=== PATIENT | male | born 1950 | race Caucasian/White ===

== ENCOUNTER 2017-05-28 12:45 | Inpatient (IN) | payer MEDICARE, OTHER ==
[~2017-05-28 12:45] MED LIST: Bisacodyl 5 MG Tab PO PRN; Cyclobenzaprine 10 MG Tab PO PRN; Lactated Ringers 1,000 ML IV SCH; Lidocaine 1%/Sod Bicarbonate in NS 8.4% 1 ML Syringe IV PRN; Magnesium Hydroxide 400 MG/5 ML Susp 30 ML Cup PO PRN; Morphine 2 MG/ML Syringe IVPUSH PRN; Naloxone 0.4 MG/ML SDV IVPUSH PRN; Ondansetron 4 MG/2 ML SDV IVPUSH PRN; Sennosides 8.6 MG Tab PO PRN; Sodium Chloride 0.9% 10 ML Syringe FLUSH PRN; diphenhydrAMINE 50 MG/ML SDV IVPUSH PRN
[2017-05-28] MEDS ORDERED: ceFAZolin 1 GM Vial ONE (13:29)
[2017-05-28] MEDS ORDERED: fentaNYL 100 MCG/2 ML SDV ONE (13:30)
[2017-05-28] MEDS ORDERED: Midazolam 1 MG/ML 2 ML SDV ONE ×2 (13:30→14:23)
[2017-05-28] MEDS ORDERED: Morphine PF 10 MG/10 ML SDV ONE (13:30)
[2017-05-28] MEDS ORDERED: Propofol 200 MG/20 ML SDV ONE ×4 (13:30→17:08)
--- NOTE | 2017-05-28 13:30 | PCM.PREANE ---
Preanesthetic Assessment - Anesthesia/Transfusion/Family Hx Anesthesia History: Prior Anesthesia Without Reaction Family History of Anesthesia Reaction: No Transfusion History: No Prior Transfusion(s) Intubation History: Unknown - Review of Systems General: No Symptoms Pulmonary: No Symptoms Cardiovascular: No Symptoms Gastrointestinal: No Symptoms Neurological: No Symptoms Other: Reports: None, Easy Bruising - Physical Assessment NPO Status Date: 05/28/17 NPO Status Time: 06:00 Pulse: 74 O2 Sat by Pulse Oximetry: 94 Respiratory Rate: 16 Blood Pressure: 139/74 Temperature: 99 F Height: 1.83 m Weight: 90.764 kg ASA Class: 2 Mental Status: Alert & Oriented x3 Airway Class: Mallampati = 2 Dentition: Reports: Normal Dentition ROM/Head Extension: Full Lungs: Clear to Auscultation, Normal Respiratory Effort Cardiovascular: Regular Rate, Regular Rhythm - Lab Values: Laboratory Last Values MRSA (PCR) Negative 05/08/17 13:01 - Allergies Allergies/Adverse Reactions: Allergies Allergy/AdvReac Type Severity Reaction Status Date / Time No Known Allergies Allergy Verified 06/12/16 20:51 - Blood Blood Available: No - Acknowledgements Anesthesia Type Planned: Spinal Pt an Appropriate Candidate for the Planned Anesthesia: Yes Alternatives and Risks of Anesthesia Discussed w Pt/Guardian: Yes Pt/Guardian Understands and Agrees with Anesthesia Plan: Yes PreAnesthesia Questionnaire HEENT History: Reports: Allergic Rhinitis, Impaired Vision, Other (See Below) Other HEENT History: wears glasses, has hearing aids Cardiovascular History: Reports: Hypertension Respiratory History: Reports: Sleep Apnea Gastrointestinal History: Reports: GERD Genitourinary History: Reports: Prostate Disorder, Other (See Below) Other Genitourinary History: renal artery anurysm, malignant neoplasm of prostate 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 Musculoskeletal History: Reports: Arthritis, Osteoarthritis, Osteoporosis Neurological History: Reports: None, Other (See Below) Psychiatric History: Reports: None Endocrine/Metabolic History: Reports: None Hematologic History: Reports: None Immunologic History: Reports: None Oncologic (Cancer) History: Reports: Prostate Other Oncologic History: skin cancer removed x2 Dermatologic History: Reports: None - Past Surgical History Head Surgeries/Procedures: Reports: None HEENT Surgical History: Reports: Cataract Surgery, Naso-Sinus Surgery Other HEENT Surgeries/Procedures: sinus surgery Cardiovascular Surgical History: Reports: None Respiratory Surgical History: Reports: None GI Surgical History: Reports: Colonoscopy, Hernia, Inguinal Male Surgical History: Reports: Other (See Below) Other Male Surgeries/Procedures: prostate surgery Endocrine Surgical History: Reports: None Neurological Surgical History: Reports: None Musculoskeletal Surgical History: Reports: Hip Replacement, Knee Replacement, Other (See Below) Other Musculoskeletal Surgeries/Procedures:: left ankle surgery with hardward, R knee replacement, Lef toe fusion, left hip replacement Oncologic Surgical History: Dermatological Surgical History: Reports: None - SUBSTANCE USE Smoking Status *Q: Former Smoker Tobacco Use Within Last Twelve Months: No Second Hand Smoke Exposure: No Days Per Week of Alcohol Use: 2 Number of Drinks Per Day: 2 Total Drinks Per Week: 4 Recreational Drug Use History: No - HOME MEDS Home Medications: Home Meds Calcium Carbonate [Calcium] 1,200 mg PO DAILY 05/08/15 [History] Lisinopril/Hydrochlorothiazide [Lisinopril-Hctz 20-25 mg Tab] 0.5 tab PO DAILY 05/08/15 [History] Lutein/Minerals/Vit A,C & E [Ocuvite] 1 tab PO BID 06/02/16 [History] Acetaminophen/oxyCODONE [Percocet 325-5 MG] 1 - 2 tab PO Q4H PRN #60 tablet 09/28 [Rx] Diclofenac Sodium [Voltaren] 1 applic TOP ASDIRECTED PRN 05/25/17 [History] Forteo 20 mcg SQ DAILY 05/25/17 [History] Gabapentin [Neurontin] 1,200 mg PO TID 05/25/17 [History] - CURRENT (IN HOUSE) MEDS Current Meds: Current Medications Aspirin (Ecotrin) 325 mg PO BID [facility]VER[facility] Bisacodyl (Dulcolax) 5 mg PO DAILY PRN PRN Reason: Constipation Morphine Sulfate 8 mg/Epinephrine HCl 0.3 mg/Cefuroxime Sodium 750 mg/Ketorolac Tromethamine 30 mg/Sodium Chloride 27.9 ml 0 mg .XX ONETIME ONE Stop: 05/28/17 15:01 Cyclobenzaprine HCl (Flexeril) 10 mg PO TID PRN PRN Reason: Spasms Diphenhydramine HCl (Benadryl) 25 mg IVPUSH Q4H PRN PRN Reason: Nausea Docusate Sodium (Colace) 100 mg PO BID [facility] Famotidine (Pepcid) 20 mg PO Q12H [facility] Lactated Ringer's (Ringers, Lactated) 1,000 mls @ 125 mls/hr IV ASDIRECTED [facility] Cefazolin Sodium/Dextrose 2 gm (/ Premix) 50 mls @ 100 mls/hr IV Q8H [facility] Stop: 05/28/17 23:59 Ketorolac Tromethamine (Toradol) 15 mg IVPUSH Q6H [facility] Stop: 05/28/17 19:31 Lidocaine/Sodium Bicarbonate (Buffered Lidocaine 1% In Ns 8.4%) 0.25 ml IV ONETIME PRN PRN Reason: Prior to IV Start Stop: 05/28/17 23:00 Magnesium Hydroxide (Milk Of Magnesia) 30 ml PO BID PRN PRN Reason: Constipation Morphine Sulfate (Morphine) 2 mg IVPUSH Q2H PRN PRN Reason: Breakthrough Pain Naloxone HCl (Narcan) 0.1 mg IVPUSH Q5M PRN PRN Reason: Oversedation Ondansetron HCl (Zofran) 4 mg IVPUSH Q6H PRN PRN Reason: Nausea/Vomiting Oxycodone/Acetaminophen (Percocet 325-5 Mg) 1 - 2 tab PO Q4H PRN PRN Reason: Pain Senna (Senna) 8.6 mg PO BID PRN PRN Reason: Constipation Sodium Chloride (Saline Flush) 10 ml FLUSH ASDIRECTED PRN PRN Reason: Keep Vein Open Discontinued Medications Bupivacaine HCl (Marcaine 0.25%) Confirm Administered Dose 30 ml .ROUTE .STK- MED ONE Stop: 05/28/17 12:41 Cefazolin Sodium (Ancef) Confirm Administered Dose 2 gm .ROUTE .STK-MED ONE Stop: 05/28/17 12:41 Cefazolin Sodium (Ancef) Confirm Administered Dose 2 gm .ROUTE .STK-MED ONE Stop: 05/28/17 13:30 Fentanyl (Sublimaze) Confirm Administered Dose 100 mcg .ROUTE .STK-MED ONE Stop: 05/28/17 13:31 Iodine (Iodine 2% Mild Tincture) Confirm Administered Dose 30 ml .ROUTE .STK- MED ONE Stop: 05/28/17 12:41 Midazolam HCl (Versed 1 Mg/Ml) Confirm Administered Dose 2 mg .ROUTE .STK-MED ONE Stop: 05/28/17 13:31 Morphine Sulfate (Duramorph Pf) Confirm Administered Dose 10 mg .ROUTE .STK-MED ONE Stop: 05/28/17 13:31 Propofol (Diprivan 20 Ml) Confirm Administered Dose 600 mg .ROUTE .STK-MED ONE Stop: 05/28/17 13:31 Tranexamic Acid (Cyklokapron) Confirm Administered Dose 1,000 mg .ROUTE .STK- MED ONE Stop: 05/28/17 12:41 Vancomycin HCl (Vancomycin) Confirm Administered Dose 1 gm .ROUTE .STK-MED ONE Stop: 05/28/17 12:41
[2017-05-28] MEDS ORDERED: Ketamine 500 mg/10 ML MDV ONE (14:24)
[2017-05-28] MEDS ORDERED: Morphine 8 MG, EPINEPHrine 0.3 MG, Cefuroxime 750 MG, Ketorolac 30 MG, Sodium Chloride ... ONE ×5 (15:00)
[2017-05-28] MEDS: ceFAZolin 1 GM Vial ONE ×2 (15:37→16:19)
[2017-05-28] MEDS: Bupivacaine 0.25% 30 ML SDV ONE ×2 (15:37→16:25)
[2017-05-28] MEDS: Iodine/Sodium Iodide 2% Tincture 30 ML Bottle ONE ×2 (15:38→16:15)
[2017-05-28] MEDS: Vancomycin 1 GM SDV ONE ×3 (15:40→16:26)
[2017-05-28] MEDS ORDERED: diphenhydrAMINE 50 MG/ML SDV IVPUSH PRN (15:41)
[2017-05-28] MEDS ORDERED: ePHEDrine 50 MG/ML SDV IVPUSH PRN (15:41)
[2017-05-28] MEDS ORDERED: Ondansetron 4 MG/2 ML SDV IVPUSH PRN (15:41)
[2017-05-28] MEDS ORDERED: Haloperidol Lactate 5 MG/ML SDV IVPUSH ONE (15:41)
[2017-05-28] MEDS ORDERED: Ketorolac 30 MG/ML SDV ONE (16:28)
[2017-05-28] MEDS ORDERED: Ondansetron 4 MG/2 ML SDV ONE (16:28)
--- NOTE | 2017-05-28 17:02 | PCM.POSTAN ---
POST ANESTHESIA ASSESSMENT - MENTAL STATUS Mental Status: Alert, Oriented - VITAL SIGNS Pulse Rate: 71 SaO2: 94 Resp Rate: 21 Blood Pressure: 111/72 Temperature: 36.1 C - RESPIRATORY Respiratory Status: Respiratory Rate WNL, Airway Patent, O2 Saturation Stable - CARDIOVASCULAR CV Status: Pulse Rate WNL, Blood Pressure Stable - GASTROINTESTINAL GI Status: No Symptoms - PAIN Pain Score: 0 - POST OP HYDRATION Hydration Status: Adequate & Stable
[2017-05-28] MEDS ORDERED: Diphtheria,Pertussis(Acell),Tetanus Vaccine 0.5 ML SDV IM ONE (18:37)
[2017-05-28] MEDS ORDERED: FLU Vacc QS 2017-18 (6mos UP)/PF 60 MCG/0.5 ML Syringe IM ONE (19:00)
--- NOTE | 2017-05-28 20:01 | PCM.CONS ---
H&P History of Present Illness - General Date of Service: 05/28/17 Admit Problem/Dx: Admission Diagnosis/Problem Admission Diagnosis/Problem Osteoarthritis of hip Source of Information: Patient, Family (), Old Records, Provider, RN, RN Notes Reviewed, Other (surgical notes ) History Limitations: Reports: No Limitations - History of Present Illness Initial Comments - Free Text/Narative: Jean-Paul Almanza is a 66 [address] of [address] Morgan who is post-operative day 0 right AMANDO. Hospital medicine was consulted for medical management. Pt. is resting comfortably in bed. He reports mild nausea and this was communicated to the nurse. He denies any CP, SOB, palpitations, or vomiting. He carries a history of HTN, DESTIN, GERD, Renal artery aneurysm with stent placement, malignant neoplasm of the prostate, prostatectomy, OA, arthritis, osteoporosis, right TKA , left AMANDO. He is a former smoker. He is a full code. His PCP is Vane Steiner PA-C here at [facility]. Right Hip Pain Score (Numeric/FACES): 5 - Related Data Allergies/Adverse Reactions: Allergies Allergy/AdvReac Type Severity Reaction Status Date / Time No Known Allergies Allergy Verified 06/12/16 20:51 Home Medications: Home Meds Calcium Carbonate [Calcium] 1,200 mg PO DAILY 05/08/15 [History] Lisinopril/Hydrochlorothiazide [Lisinopril-Hctz 20-25 mg Tab] 0.5 tab PO DAILY 05/08/15 [History] Lutein/Minerals/Vit A,C & E [Ocuvite] 1 tab PO BID 06/02/16 [History] Acetaminophen/oxyCODONE [Percocet 325-5 MG] 1 - 2 tab PO Q4H PRN #60 tablet 09/28 [Rx] Diclofenac Sodium [Voltaren] 1 applic TOP ASDIRECTED PRN 05/25/17 [History] Forteo 20 mcg SQ DAILY 05/25/17 [History] Gabapentin [Neurontin] 1,200 mg PO TID 05/25/17 [History] Past Medical History HEENT History: Reports: Allergic Rhinitis, Impaired Vision, Other (See Below) Other HEENT History: wears glasses, has hearing aids Cardiovascular History: Reports: Hypertension Respiratory History: Reports: Sleep Apnea Gastrointestinal History: Reports: GERD Genitourinary History: Reports: Prostate Disorder, Other (See Below) Other Genitourinary History: renal artery anurysm, malignant neoplasm of prostate 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 Musculoskeletal History: Reports: Arthritis, Osteoarthritis, Osteoporosis Neurological History: Reports: None, Other (See Below) Psychiatric History: Reports: None Endocrine/Metabolic History: Reports: None Hematologic History: Reports: None Immunologic History: Reports: None Oncologic (Cancer) History: Reports: Prostate Other Oncologic History: skin cancer removed x2 Dermatologic History: Reports: None - Past Surgical History Head Surgeries/Procedures: Reports: None HEENT Surgical History: Reports: Cataract Surgery, Naso-Sinus Surgery Other HEENT Surgeries/Procedures: sinus surgery Cardiovascular Surgical History: Reports: None Respiratory Surgical History: Reports: None GI Surgical History: Reports: Colonoscopy, Hernia, Inguinal Male Surgical History: Reports: Other (See Below) Other Male Surgeries/Procedures: prostate surgery Endocrine Surgical History: Reports: None Neurological Surgical History: Reports: None Musculoskeletal Surgical History: Reports: Hip Replacement, Knee Replacement, Other (See Below) Other Musculoskeletal Surgeries/Procedures:: left ankle surgery with hardward, R knee replacement, Lef toe fusion, left hip replacement with revision Dermatological Surgical History: Reports: None Social & Family History - Family History Family Medical History: Noncontributory Oncologic: Reports: Breast, Prostate Other Oncologic Family History: brother. sister - Tobacco Use Smoking Status *Q: Former Smoker Years of Tobacco use: 40 Packs/Tins Daily: 1 Used Tobacco, but Quit: Yes Month Tobacco Last Used: 08/2002 Second Hand Smoke Exposure: No - Caffeine Use Caffeine Use: Reports: Coffee, Tea Other Caffeine Use: a few teas, and coffee a day - Alcohol Use Days Per Week of Alcohol Use: 2 Number of Drinks Per Day: 2 Total Drinks Per Week: 4 - Recreational Drug Use Recreational Drug Use: No Drug Use in Last 12 Months: No H&P Review of Systems - Review of Systems: Review Of Systems: See Below General: Reports: No Symptoms, Chills. Denies: Fever, Malaise, Weakness, Fatigue HEENT: Reports: No Symptoms. Denies: Ear Pain, Eye Pain, Headaches, Sore Throat , Visual Changes Pulmonary: Reports: No Symptoms. Denies: Shortness of Breath, Wheezing, Pleuritic Chest Pain, Cough, Sputum Cardiovascular: Reports: No Symptoms. Denies: Chest Pain, Palpitations, Dyspnea on Exertion, Orthopnea, Edema Gastrointestinal: Reports: Nausea (mild ). Denies: Abdominal Pain, Anorexia, Black Stool, Constipation, Diarrhea, Vomiting Genitourinary: Reports: No Symptoms. Denies: Frequency, Pain, Urgency Musculoskeletal: Reports: Leg Pain (right ), Joint Pain (right hip ). Denies: Neck Pain, Shoulder Pain, Back Pain Skin: Reports: No Symptoms. Denies: Cyanosis, Jaundice, Mottled Psychiatric: Reports: No Symptoms. Denies: Confusion, Depression, Mood Lability , Anxiety Neurological: Reports: No Symptoms. Denies: Confusion, Dizziness, Headache, Numbness, Tingling Hematologic/Lymphatic: Reports: Easy Bruising. Denies: Anemia, Easy Bleeding, Swollen Glands Immunologic: Reports: No Symptoms Review of Systems Comment:: Patient is resting. Notes mild nausea as he had just eaten supper. Reports he can finally feel his legs again. No other complaints at this time. Exam - Exam Exam: See Below - Vital Signs Vital Signs: Last Vital Signs Temp 97.9 F 05/28/17 17:56 Pulse 71 05/28/17 17:02 Resp 9 L 05/28/17 17:56 BP 114/77 05/28/17 17:56 Pulse Ox 98 05/28/17 17:56 Weight: 205 lb - Exam Quality Assessment: Urinary Catheter, DVT Prophylaxis General: Alert, Oriented, Cooperative HEENT: Conjunctiva Clear, EACs Clear, Hearing Intact, Mucosa Moist & [place], Nares Patent, Normal Nasal Septum, Posterior Pharynx Clear, Pupils Equal, Pupils Reactive Neck: Supple, Trachea Midline. No: JVD Lungs: Clear to Auscultation, Normal Respiratory Effort Cardiovascular: Regular Rate, Regular Rhythm GI/Abdominal Exam: Normal Bowel Sounds, Soft, Non-Tender, No Organomegaly, No Distention, No Abnormal Bruit, No Mass (Male) Exam: Deferred Rectal (Males) Exam: Deferred Back Exam: Normal Inspection, Full Range of Motion Extremities: No Pedal Edema, Normal Capillary Refill, Limited Range of Motion, Other (Wedge in place between patients legs. CHANELLE bandage in place on right leg. Bandage is intact and dry.) Peripheral Pulses: 2+: Radial (L), Radial (R), Posterior Tibial (L), Posterior Tibial (R), Dorsalis Pedis (L), Dorsalis Pedis (R) Skin: Warm, Intact Neurological: Cranial Nerves Intact (grossly ) Neuro Extensive - Mental Status: Alert, Oriented x3, Normal Mood/Affect, Normal Cognition, Memory Intact Neuro Extensive - Motor, Sensory, Reflexes: CN II-XII Intact (grossly ) Psychiatric: Alert, Normal Affect, Normal Mood Physical Exam Comments:: Patient is resting in bed. Overall no concerns. We'll continue to monitor his nausea. - Patient Data Lab Results Last 24 hrs: Laboratory Results - last 24 hr 05/28/17 Range/Units 13:30 Blood Type O POSITIVE Gel Antibody Screen Negative Consult PN Assessment/Plan POD#: 0 Procedures: Procedures 3D RENDER W/INTRP POSTPROCES (06/09/16) AQUATIC THERAPY/EXERCISES (10/11/16) ASSAY OF CREATININE (03/07/16) ASSAY OF FERRITIN (05/23/16) ASSAY OF PARATHORMONE (07/19/16) ASSAY OF PREALBUMIN (05/08/17) ASSAY OF PSA TOTAL (12/01/14) ASSAY OF TROPONIN QUANT (05/23/16) BLOOD TYPING SEROLOGIC ABO (06/12/16) BLOOD TYPING SEROLOGIC RH(D) (06/12/16) BONE IMAGING 3 PHASE (02/14/17) C-REACTIVE PROTEIN (01/30/17) CARDIOVASCULAR STRESS TEST (05/31/16) CHEST X-RAY 2VW FRONTAL&LATL (03/26/17) COMPLETE CBC W/AUTO DIFF WBC (05/08/17) COMPREHEN METABOLIC PANEL (05/08/17) CREATINE MB FRACTION (05/23/16) CT ABDOMEN W/O & W/DYE (03/07/16) CT LOWER EXTREMITY W/O DYE (06/09/16) CT MAXILLOFACIAL W/O DYE (09/16/14) DRAIN/INJ JOINT/BURSA W/O US (03/06/17) DXA BONE DENSITY AXIAL (07/03/16) ELECTRIC CURRENT THERAPY (03/06/17) EMERGENCY DEPT VISIT (05/08/15) EXTREMITY STUDY (02/15/16) GAIT TRAINING THERAPY (06/12/16) HT MUSCLE IMAGE SPECT MULT (05/31/16) INFLUENZA ASSAY W/OPTIC (10/26/16) MANUAL THERAPY 1/> REGIONS (03/06/17) MEASURE BLOOD OXYGEN LEVEL (06/12/16) METABOLIC PANEL TOTAL CA (01/30/17) MR-STAPH DNA AMP PROBE (05/24/16) MRI LUMBAR SPINE W/O DYE (02/22/16) NEUROMUSCULAR REEDUCATION (09/07/16) OFFICE/OUTPATIENT VISIT EST (10/26/16) OT EVALUATION (06/12/16) PROTHROMBIN TIME (05/08/17) PT EVAL MOD COMPLEX 30 MIN (03/06/17) PT EVALUATION (06/12/16) RBC ANTIBODY SCREEN (06/12/16) RBC SED RATE AUTOMATED (01/30/17) ROUTINE VENIPUNCTURE (05/08/17) SELF CARE MNGMENT TRAINING (06/12/16) THERAPEUTIC ACTIVITIES (06/05/16) THERAPEUTIC EXERCISES (03/06/17) THROMBOPLASTIN TIME PARTIAL (05/08/17) TTE W/DOPPLER COMPLETE (05/31/16) URINALYSIS AUTO W/O SCOPE (12/01/14) VITAMIN D 25 HYDROXY (07/19/16) X-RAY EXAM HIP UNI 1 VIEW (06/12/16) X-RAY EXAM L-S SPINE BENDING (02/22/16) (1) S/P total hip arthroplasty SNOMED Code(s): 960472950878 Code(s): Z96.649 - PRESENCE OF UNSPECIFIED ARTIFICIAL HIP JOINT Priority: High Current Visit: Yes Qualifiers: Laterality: right Qualified Code(s): Z96.641 - Presence of right artificial hip joint (2) Postoperative nausea SNOMED Code(s): 94012835 Code(s): R11.0 - NAUSEA; Z98.890 - OTHER SPECIFIED POSTPROCEDURAL STATES Priority: High Current Visit: Yes (3) Osteoarthritis of hip SNOMED Code(s): 726337048 Code(s): M16.9 - OSTEOARTHRITIS OF HIP, UNSPECIFIED Priority: High Current Visit: Yes Qualifiers: Osteoarthritis type: primary Laterality: right Qualified Code(s): M16.11 - Unilateral primary osteoarthritis, right hip (4) GERD (gastroesophageal reflux disease) SNOMED Code(s): 623581656 Code(s): K21.9 - GASTRO-ESOPHAGEAL REFLUX DISEASE WITHOUT ESOPHAGITIS Priority: Low Current Visit: Yes Qualifiers: Esophagitis presence: esophagitis presence not specified Qualified Code(s) : K21.9 - Gastro-esophageal reflux disease without esophagitis (5) Monzon catheter in place SNOMED Code(s): 827647644 Code(s): Z92.89 - PERSONAL HISTORY OF OTHER MEDICAL TREATMENT Priority: Medium Current Visit: Yes (6) HTN (hypertension) SNOMED Code(s): 60243236 Code(s): I10 - ESSENTIAL (PRIMARY) HYPERTENSION Priority: Medium Current Visit: Yes Qualifiers: Hypertension type: essential hypertension Qualified Code(s): I10 - Essential (primary) hypertension (7) DESTIN on CPAP SNOMED Code(s): 13361392 Code(s): G47.33 - OBSTRUCTIVE SLEEP APNEA (ADULT) (PEDIATRIC) Priority: Medium Current Visit: Yes (8) History of prostate cancer SNOMED Code(s): 318958524 Code(s): Z85.46 - PERSONAL HISTORY OF MALIGNANT NEOPLASM OF PROSTATE Priority: Low Current Visit: No (9) Renal artery aneurysm SNOMED Code(s): 75026799 Code(s): I72.2 - ANEURYSM OF RENAL ARTERY Priority: Low Current Visit: No Comment: Recent renal artery aneurysm repair/stenting done 1 year prior Problem List Initiated/Reviewed/Updated: Yes Plan: I/P Acute: S/P Right AMANDO, pre-operative day 0 -DVT and pain management per primary care team -PT/OT -IS/RT -Monitor O2 saturation -O2 as indicated. Post operative nausea -Mild -Zofran as ordered via primary team -Will continue to monitor Chronic: HTN - home medications; normotensive now DESTIN - CPAP GERD Hx/o renal artery aneurism with stent Malignant neoplasm of prostate Arthritis OA Osteoperosis Hx/o Right TKA Hx/O left AMANDO Plan: CM/SW for discharge planning GI prophylaxis Home medications as ordered Routine AM labs He is a full code. His PCP is Vane Steiner PA-C Requesting Provider: Dr. Morgan Date Consult Requested: 05/28/17 Reason for Consult: Post-operative medical management Patient History Reviewed: Yes Admission H&P Reviewed: Yes Time Spent (in minutes): 45
[2017-05-28] MEDS: Docusate Sodium 100 MG Cap PO SCH (20:47)
[2017-05-28] MEDS: Famotidine 20 MG Tab PO SCH (20:47)
[2017-05-28] MEDS: ceFAZolin 2 GM in Premix Bag 1 BAG IV SCH (20:48)
[2017-05-28] MEDS: Gabapentin 600 MG Tab PO SCH (20:53)
[2017-05-29] MEDS: Ketorolac 15 MG/ML SDV IVPUSH SCH ×3 (00:37→12:48)
[2017-05-29] MEDS: ceFAZolin 2 GM in Premix Bag 1 BAG IV SCH ×2 (05:23→12:48)
--- NOTE | 2017-05-29 06:22 | PCM.CONSN ---
- General Info Date of Service: 05/29/17 Admission Dx/Problem (Free Text): Admission Diagnosis/Problem Admission Diagnosis/Problem Osteoarthritis of hip Functional Status: Reports: Pain Controlled, Tolerating Diet, Ambulating, Urinating, Incentive Spirometry. Denies: New Symptoms - Review of Systems General: Reports: No Symptoms HEENT: Reports: No Symptoms Pulmonary: Reports: No Symptoms Cardiovascular: Reports: No Symptoms Gastrointestinal: Reports: No Symptoms Genitourinary: Reports: No Symptoms Musculoskeletal: Reports: Joint Pain (12/20 but controlled. ). Denies: Neck Pain , Shoulder Pain, Back Pain, Leg Pain, Foot Pain Skin: Reports: No Symptoms Neurological: Reports: No Symptoms Psychiatric: Reports: No Symptoms - Patient Data Vitals - Most Recent: Last Vital Signs Temp 98.1 F 05/29/17 03:01 Pulse 81 05/29/17 03:01 Resp 14 05/29/17 03:01 BP 120/68 05/29/17 03:01 Pulse Ox 95 05/29/17 03:01 Weight - Most Recent: 205 lb I&O - Last 24 Hours: Intake & Output 05/28/17 05/28/17 05/29/17 14:59 22:59 06:59 Intake Total 125 850 Output Total 35 Balance 90 850 Lab Results Last 24 Hours: Laboratory Results - last 24 hr 05/28/17 Range/Units 13:30 Blood Type O POSITIVE Gel Antibody Screen Negative Med Orders - Current: Current Medications Aspirin (Ecotrin) 325 mg PO BID [facility] Bisacodyl (Dulcolax) 5 mg PO DAILY PRN PRN Reason: Constipation Calcium Carbonate/Glycine (Calcium Carbonate) 1,200 mg PO DAILY [facility] Cyclobenzaprine HCl (Flexeril) 10 mg PO TID PRN PRN Reason: Spasms Diphenhydramine HCl (Benadryl) 25 mg IVPUSH Q4H PRN PRN Reason: Nausea Diphenhydramine HCl (Benadryl) 25 mg IVPUSH Q6H PRN PRN Reason: Pruritis Docusate Sodium (Colace) 100 mg PO BID [facility] Last Admin: 05/28/17 20:47 Dose: 100 mg Famotidine (Pepcid) 20 mg PO Q12H [facility] Last Admin: 05/28/17 20:47 Dose: 20 mg Gabapentin (Neurontin) 1,200 mg PO TID [facility] Last Admin: 05/28/17 20:53 Dose: 1,200 mg Hydrochlorothiazide (Hydrochlorothiazide) 12.5 mg PO DAILY [facility] Cefazolin Sodium/Dextrose 2 gm (/ Premix) 50 mls @ 100 mls/hr IV Q8H [facility] Stop: 05/29/17 13:59 Last Admin: 05/29/17 05:23 Dose: 100 mls/hr Ketorolac Tromethamine (Toradol) 15 mg IVPUSH Q6H [facility] Stop: 05/29/17 12:01 Last Admin: 05/29/17 05:23 Dose: 15 mg Lisinopril (Prinivil) 10 mg PO DAILY [facility] Magnesium Hydroxide (Milk Of Magnesia) 30 ml PO BID PRN PRN Reason: Constipation Morphine Sulfate (Morphine) 2 mg IVPUSH Q2H PRN PRN Reason: Breakthrough Pain Naloxone HCl (Narcan) 0.1 mg IVPUSH Q5M PRN PRN Reason: Oversedation Non-Formulary Medication (Forteo) 20 mcg SQ DAILY [facility] Ondansetron HCl (Zofran) 4 mg IVPUSH Q6H PRN PRN Reason: Nausea/Vomiting Ondansetron HCl (Zofran) 4 mg IVPUSH ONETIME PRN PRN Reason: Nausea/Vomiting Oxycodone/Acetaminophen (Percocet 325-5 Mg) 1 - 2 tab PO Q4H PRN PRN Reason: Pain Senna (Senna) 8.6 mg PO BID PRN PRN Reason: Constipation Sodium Chloride (Saline Flush) 10 ml FLUSH ASDIRECTED PRN PRN Reason: Keep Vein Open Discontinued Medications Bupivacaine HCl (Marcaine 0.25%) Confirm Administered Dose 30 ml .ROUTE .STK- MED ONE Stop: 05/28/17 12:41 Last Admin: 05/28/17 16:25 Dose: 30 ml Cefazolin Sodium (Ancef) Confirm Administered Dose 2 gm .ROUTE .STK-MED ONE Stop: 05/28/17 12:41 Last Admin: 05/28/17 16:19 Dose: 2 gm Cefazolin Sodium (Ancef) Confirm Administered Dose 2 gm .ROUTE .STK-MED ONE Stop: 05/28/17 13:30 Morphine Sulfate 8 mg/Epinephrine HCl 0.3 mg/Cefuroxime Sodium 750 mg/Ketorolac Tromethamine 30 mg/Sodium Chloride 27.9 ml 0 mg .XX ONETIME ONE Stop: 05/28/17 15:01 Last Admin: 05/28/17 15:40 Dose: 788.3 mg Diphtheria/Tetanus/Acell Pertussis (Adacel) 0.5 ml IM .ONCE ONE Stop: 05/28/17 18:38 Ephedrine Sulfate (Ephedrine Sulfate) 5 mg IVPUSH ASDIRECTED PRN PRN Reason: Hypotension Fentanyl (Sublimaze) Confirm Administered Dose 100 mcg .ROUTE .STK-MED ONE Stop: 05/28/17 13:31 Haloperidol Lactate (Haldol) 1 mg IVPUSH ONETIME ONE Stop: 05/28/17 15:42 Lactated Ringer's (Ringers, Lactated) 1,000 mls @ 125 mls/hr IV ASDIRECTED [facility] Last Admin: 05/28/17 13:28 Dose: 125 mls/hr Influenza Virus Vaccine (Pharmacy To Dose - Influenza Vaccine) 1 each IM ONETIME ONE Stop: 05/28/17 18:38 Influenza Virus Vaccine (Flulaval Quad [id number]) 60 mcg IM .ONCE ONE Stop: 05/28/17 19:01 Iodine (Iodine 2% Mild Tincture) Confirm Administered Dose 30 ml .ROUTE .STK- MED ONE Stop: 05/28/17 12:41 Last Admin: 05/28/17 16:15 Dose: 18 ml Ketamine HCl (Ketalar) Confirm Administered Dose 500 mg .ROUTE .STK-MED ONE Stop: 05/28/17 14:25 Ketorolac Tromethamine (Toradol) Confirm Administered Dose 30 mg .ROUTE .STK- MED ONE Stop: 05/28/17 16:29 Lidocaine/Sodium Bicarbonate (Buffered Lidocaine 1% In Ns 8.4%) 0.25 ml IV ONETIME PRN PRN Reason: Prior to IV Start Stop: 05/28/17 23:00 Last Admin: 05/28/17 13:27 Dose: 0.25 ml Midazolam HCl (Versed 1 Mg/Ml) Confirm Administered Dose 2 mg .ROUTE .STK-MED ONE Stop: 05/28/17 13:31 Midazolam HCl (Versed 1 Mg/Ml) Confirm Administered Dose 2 mg .ROUTE .STK-MED ONE Stop: 05/28/17 14:24 Morphine Sulfate (Duramorph Pf) Confirm Administered Dose 10 mg .ROUTE .STK-MED ONE Stop: 05/28/17 13:31 Ondansetron HCl (Zofran) Confirm Administered Dose 4 mg .ROUTE .STK-MED ONE Stop: 05/28/17 16:29 Propofol (Diprivan 20 Ml) Confirm Administered Dose 600 mg .ROUTE .STK-MED ONE Stop: 05/28/17 13:31 Propofol (Diprivan 20 Ml) Confirm Administered Dose 200 mg .ROUTE .STK-MED ONE Stop: 05/28/17 14:24 Propofol (Diprivan 20 Ml) Confirm Administered Dose 400 mg .ROUTE .STK-MED ONE Stop: 05/28/17 14:25 Propofol (Diprivan 20 Ml) Confirm Administered Dose 600 mg .ROUTE .STK-MED ONE Stop: 05/28/17 17:09 Tranexamic Acid (Cyklokapron) Confirm Administered Dose 1,000 mg .ROUTE .STK- MED ONE Stop: 05/28/17 12:41 Last Admin: 05/28/17 16:26 Dose: 1,000 mg Vancomycin HCl (Vancomycin) Confirm Administered Dose 1 gm .ROUTE .STK-MED ONE Stop: 05/28/17 12:41 Last Admin: 05/28/17 16:20 Dose: 1 gm - Exam Quality Assessment: DVT Prophylaxis General: Alert, Oriented, Cooperative HEENT: Pupils Equal, Pupils Reactive, Mucous Membr. Moist/[place] Neck: Supple, Trachea Midline, No JVD Lungs: Clear to Auscultation, Normal Respiratory Effort Cardiovascular: Regular Rate, Regular Rhythm GI/Abdominal Exam: Normal Bowel Sounds, Soft, Non-Tender, No Organomegaly, No Distention, No Abnormal Bruit, No Mass (Male) Exam: Deferred Back Exam: Normal Inspection, Full Range of Motion Extremities: No Pedal Edema, Normal Capillary Refill Peripheral Pulses: 2+: Radial (L), Radial (R), Posterior Tibial (L), Posterior Tibial (R), Dorsalis Pedis (L), Dorsalis Pedis (R) Skin: Warm, Dry, Intact Wound/Incisions: Dressing Dry and Intact, No Drainage Neurological: No New Focal Deficit Psy/Mental Status: Alert, Normal Affect, Normal Mood Physical Findings Comments:: Patient has left walking boot that he wears from prior surgery. His reportedly will need to wear this boot for 1 year since the date of his surgery. Otherwise is doing well. Consult PN Assessment/Plan POD#: 1 Procedures: Procedures 3D RENDER W/INTRP POSTPROCES (06/09/16) AQUATIC THERAPY/EXERCISES (10/11/16) ASSAY OF CREATININE (03/07/16) ASSAY OF FERRITIN (05/23/16) ASSAY OF PARATHORMONE (07/19/16) ASSAY OF PREALBUMIN (05/08/17) ASSAY OF PSA TOTAL (12/01/14) ASSAY OF TROPONIN QUANT (05/23/16) BLOOD TYPING SEROLOGIC ABO (06/12/16) BLOOD TYPING SEROLOGIC RH(D) (06/12/16) BONE IMAGING 3 PHASE (02/14/17) C-REACTIVE PROTEIN (01/30/17) CARDIOVASCULAR STRESS TEST (05/31/16) CHEST X-RAY 2VW FRONTAL&LATL (03/26/17) COMPLETE CBC W/AUTO DIFF WBC (05/08/17) COMPREHEN METABOLIC PANEL (05/08/17) CREATINE MB FRACTION (05/23/16) CT ABDOMEN W/O & W/DYE (03/07/16) CT LOWER EXTREMITY W/O DYE (06/09/16) CT MAXILLOFACIAL W/O DYE (09/16/14) DRAIN/INJ JOINT/BURSA W/O US (03/06/17) DXA BONE DENSITY AXIAL (07/03/16) ELECTRIC CURRENT THERAPY (03/06/17) EMERGENCY DEPT VISIT (05/08/15) EXTREMITY STUDY (02/15/16) GAIT TRAINING THERAPY (06/12/16) HT MUSCLE IMAGE SPECT MULT (05/31/16) INFLUENZA ASSAY W/OPTIC (10/26/16) MANUAL THERAPY 1/> REGIONS (03/06/17) MEASURE BLOOD OXYGEN LEVEL (06/12/16) METABOLIC PANEL TOTAL CA (01/30/17) MR-STAPH DNA AMP PROBE (05/24/16) MRI LUMBAR SPINE W/O DYE (02/22/16) NEUROMUSCULAR REEDUCATION (09/07/16) OFFICE/OUTPATIENT VISIT EST (10/26/16) OT EVALUATION (06/12/16) PROTHROMBIN TIME (05/08/17) PT EVAL MOD COMPLEX 30 MIN (03/06/17) PT EVALUATION (06/12/16) RBC ANTIBODY SCREEN (06/12/16) RBC SED RATE AUTOMATED (01/30/17) ROUTINE VENIPUNCTURE (05/08/17) SELF CARE MNGMENT TRAINING (06/12/16) THERAPEUTIC ACTIVITIES (06/05/16) THERAPEUTIC EXERCISES (03/06/17) THROMBOPLASTIN TIME PARTIAL (05/08/17) TTE W/DOPPLER COMPLETE (05/31/16) URINALYSIS AUTO W/O SCOPE (12/01/14) VITAMIN D 25 HYDROXY (07/19/16) X-RAY EXAM HIP UNI 1 VIEW (06/12/16) X-RAY EXAM L-S SPINE BENDING (02/22/16) (1) S/P total hip arthroplasty SNOMED Code(s): 951630468355 Code(s): Z96.649 - PRESENCE OF UNSPECIFIED ARTIFICIAL HIP JOINT Priority: High Current Visit: Yes Qualifiers: Laterality: right Qualified Code(s): Z96.641 - Presence of right artificial hip joint (2) Postoperative nausea SNOMED Code(s): 24157591 Code(s): R11.0 - NAUSEA; Z98.890 - OTHER SPECIFIED POSTPROCEDURAL STATES Priority: High Current Visit: Yes (3) Osteoarthritis of hip SNOMED Code(s): 917860878 Code(s): M16.9 - OSTEOARTHRITIS OF HIP, UNSPECIFIED Priority: High Current Visit: Yes Qualifiers: Osteoarthritis type: primary Laterality: right Qualified Code(s): M16.11 - Unilateral primary osteoarthritis, right hip (4) GERD (gastroesophageal reflux disease) SNOMED Code(s): 443479311 Code(s): K21.9 - GASTRO-ESOPHAGEAL REFLUX DISEASE WITHOUT ESOPHAGITIS Priority: Low Current Visit: Yes Qualifiers: Esophagitis presence: esophagitis presence not specified Qualified Code(s) : K21.9 - Gastro-esophageal reflux disease without esophagitis (5) HTN (hypertension) SNOMED Code(s): 59913029 Code(s): I10 - ESSENTIAL (PRIMARY) HYPERTENSION Priority: Medium Current Visit: Yes Qualifiers: Hypertension type: essential hypertension Qualified Code(s): I10 - Essential (primary) hypertension (6) DESTIN on CPAP SNOMED Code(s): 83739611 Code(s): G47.33 - OBSTRUCTIVE SLEEP APNEA (ADULT) (PEDIATRIC) Priority: Medium Current Visit: Yes (7) History of prostate cancer SNOMED Code(s): 217071201 Code(s): Z85.46 - PERSONAL HISTORY OF MALIGNANT NEOPLASM OF PROSTATE Priority: Low Current Visit: No (8) Renal artery aneurysm SNOMED Code(s): 51154201 Code(s): I72.2 - ANEURYSM OF RENAL ARTERY Priority: Low Current Visit: No Comment: Recent renal artery aneurysm repair/stenting done 1 year prior Problem List Initiated/Reviewed/Updated: Yes Plan: I/P Acute: S/P Right AMANDO, pre-operative day 1 -DVT and pain management per primary care team -PT/OT -IS/RT -Monitor O2 saturation - off O2 -Hgb 11.7 -Hct 36.6 -Vital signs stable -Cretinine 1.1 -eGFR >60 -Urinating Post operative nausea - Resolved -Mild -Zofran as ordered via primary team -Will continue to monitor Chronic: HTN - home medications; normotensive now DESTIN - CPAP GERD Hx/o renal artery aneurism with stent Malignant neoplasm of prostate Arthritis OA Osteoperosis Hx/o Right TKA Hx/O left AMANDO Plan: CM/SW for discharge planning GI prophylaxis Home medications as ordered Routine AM labs He is a full code. His PCP is Vane Steiner PA-C From a hospitalist standpoint he is cleared for discharge pending ortho agreement.
--- NOTE | 2017-05-29 06:44 | CR ---
Pelvis and right hip: AP view of the pelvis was obtained as well as lateral view of the right hip. Comparison: Previous pelvis and left hip study of 06/09/16. Bilateral hip prosthesis are seen. Hip prosthesis on the right is an interval change from prior exam. Soft tissue air is seen around the right hip. Underlying bony structures are intact. Degenerative change is partially visualized within the lumbar spine. Impression: 1. Stable appearing left hip prosthesis from prior exam. 2. Interval right hip prosthesis which has been recently placed and appears within normal limits. Diagnostic code #2
[2017-05-29] MEDS: Famotidine 20 MG Tab PO SCH (08:39)
[2017-05-29] MEDS: Docusate Sodium 100 MG Cap PO SCH (08:39)
[2017-05-29] MEDS: Gabapentin 600 MG Tab PO SCH ×2 (08:40→14:47)
[2017-05-29] MEDS: Acetaminophen/oxyCODONE 325-5 MG Tab PO PRN ×2 (08:41→12:56)
[2017-05-29] MEDS ORDERED: Calcium Carbonate 600 MG Tab PO SCH (09:00)
[2017-05-29] MEDS ORDERED: Hydrochlorothiazide 12.5 MG Cap PO SCH (09:00)
[2017-05-29] MEDS ORDERED: Lisinopril 10 MG Tab PO SCH (09:00)
[2017-05-29] MEDS ORDERED: Aspirin 325 MG Tab.EC PO SCH (09:00)
--- NOTE | 2017-05-29 12:08 | PCM48HPAN ---
Post Anesthesia Note - EVALUATION WITHIN 48HRS OF ANESTHETIC Vital Signs in Normal Range: Yes Patient Participated in Evaluation: Yes Respiratory Function Stable: Yes Airway Patent: Yes Cardiovascular Function Stable: Yes Hydration Status Stable: Yes Pain Control Satisfactory: Yes Nausea and Vomiting Control Satisfactory: Yes Mental Status Recovered: Yes - COMMENTS/OBSERVATIONS Free Text/Narrative:: Patient denied any headaches, residual numbness/ tingling to LE, or back pain.
[2017-05-29 17:25] VITALS: BP 129/73
[2017-05-29] MEDS ORDERED: FORTEO 20 MCG SUBCUT SCH (21:00)
--- NOTE | 2017-05-31 18:28 | PCM.OPNOTE ---
- General Post-Op/Procedure Note Date of Surgery/Procedure: 05/28/17 Operative Procedure(s): right total hip arthroplasty Pre Op Diagnosis: right hip osteoarthrosis Post-Op Diagnosis: Same Anesthesia Technique: Local, MAC, Spinal Primary Surgeon: Denton Morgan Anesthesia Provider: Laquita Perez Hydro Mechanic: Emely Ly Hydro Mechanic: Doris Medrano EBYeison in mLs: 600 Complications: None Condition: Good
--- NOTE | 2017-06-01 08:24 | PCM.SURGPN ---
- General Info Date of Service: 05/29/17 POD#: 1 Functional Status: Reports: Pain Controlled, Tolerating Diet, Ambulating, Urinating, Incentive Spirometry - Review of Systems Musculoskeletal: Reports: Other (The pt feels prepared for discharge to home.) - Patient Data Vitals - Most Recent: Last Vital Signs Temp 99.0 F 05/29/17 15:44 Pulse 92 05/29/17 15:44 Resp 18 05/29/17 15:44 BP 129/73 05/29/17 15:44 Pulse Ox 96 05/29/17 15:44 Weight - Most Recent: 205 lb Med Orders - Current: Current Medications Discontinued Medications Aspirin (Ecotrin) 325 mg PO BID [facility] Last Admin: 05/29/17 08:39 Dose: 325 mg Bisacodyl (Dulcolax) 5 mg PO DAILY PRN PRN Reason: Constipation Bupivacaine HCl (Marcaine 0.25%) Confirm Administered Dose 30 ml .ROUTE .STK- MED ONE Stop: 05/28/17 12:41 Last Admin: 05/28/17 16:25 Dose: 30 ml Calcium Carbonate/Glycine (Calcium Carbonate) 1,200 mg PO DAILY [facility] Last Admin: 05/29/17 08:40 Dose: 1,200 mg Cefazolin Sodium (Ancef) Confirm Administered Dose 2 gm .ROUTE .STK-MED ONE Stop: 05/28/17 12:41 Last Admin: 05/28/17 16:19 Dose: 2 gm Cefazolin Sodium (Ancef) Confirm Administered Dose 2 gm .ROUTE .STK-MED ONE Stop: 05/28/17 13:30 Morphine Sulfate 8 mg/Epinephrine HCl 0.3 mg/Cefuroxime Sodium 750 mg/Ketorolac Tromethamine 30 mg/Sodium Chloride 27.9 ml 0 mg .XX ONETIME ONE Stop: 05/28/17 15:01 Last Admin: 05/28/17 15:40 Dose: 788.3 mg Cyclobenzaprine HCl (Flexeril) 10 mg PO TID PRN PRN Reason: Spasms Diphenhydramine HCl (Benadryl) 25 mg IVPUSH Q4H PRN PRN Reason: Nausea Diphenhydramine HCl (Benadryl) 25 mg IVPUSH Q6H PRN PRN Reason: Pruritis Diphtheria/Tetanus/Acell Pertussis (Adacel) 0.5 ml IM .ONCE ONE Stop: 05/28/17 18:38 Last Admin: 05/29/17 14:48 Dose: 0.5 ml Docusate Sodium (Colace) 100 mg PO BID [facility] Last Admin: 05/29/17 08:39 Dose: 100 mg Ephedrine Sulfate (Ephedrine Sulfate) 5 mg IVPUSH ASDIRECTED PRN PRN Reason: Hypotension Famotidine (Pepcid) 20 mg PO Q12H [facility] Last Admin: 05/29/17 08:39 Dose: 20 mg Fentanyl (Sublimaze) Confirm Administered Dose 100 mcg .ROUTE .STK-MED ONE Stop: 05/28/17 13:31 Gabapentin (Neurontin) 1,200 mg PO TID [facility] Last Admin: 05/29/17 14:47 Dose: 1,200 mg Haloperidol Lactate (Haldol) 1 mg IVPUSH ONETIME ONE Stop: 05/28/17 15:42 Last Admin: 05/29/17 08:29 Dose: Not Given Hydrochlorothiazide (Hydrochlorothiazide) 12.5 mg PO DAILY [facility] Last Admin: 05/29/17 08:39 Dose: 12.5 mg Lactated Ringer's (Ringers, Lactated) 1,000 mls @ 125 mls/hr IV ASDIRECTED [facility] Last Admin: 05/28/17 13:28 Dose: 125 mls/hr Cefazolin Sodium/Dextrose 2 gm (/ Premix) 50 mls @ 100 mls/hr IV Q8H [facility] Stop: 05/29/17 13:59 Last Admin: 05/29/17 12:48 Dose: 100 mls/hr Influenza Virus Vaccine (Pharmacy To Dose - Influenza Vaccine) 1 each IM ONETIME ONE Stop: 05/28/17 18:38 Influenza Virus Vaccine (Flulaval Quad [id number]) 60 mcg IM .ONCE ONE Stop: 05/28/17 19:01 Last Admin: 05/29/17 14:49 Dose: 60 mcg Iodine (Iodine 2% Mild Tincture) Confirm Administered Dose 30 ml .ROUTE .STK- MED ONE Stop: 05/28/17 12:41 Last Admin: 05/28/17 16:15 Dose: 18 ml Ketamine HCl (Ketalar) Confirm Administered Dose 500 mg .ROUTE .STK-MED ONE Stop: 05/28/17 14:25 Ketorolac Tromethamine (Toradol) 15 mg IVPUSH Q6H [facility] Stop: 05/29/17 12:01 Last Admin: 05/29/17 12:48 Dose: 15 mg Ketorolac Tromethamine (Toradol) Confirm Administered Dose 30 mg .ROUTE .STK- MED ONE Stop: 05/28/17 16:29 Lidocaine/Sodium Bicarbonate (Buffered Lidocaine 1% In Ns 8.4%) 0.25 ml IV ONETIME PRN PRN Reason: Prior to IV Start Stop: 05/28/17 23:00 Last Admin: 05/28/17 13:27 Dose: 0.25 ml Lisinopril (Prinivil) 10 mg PO DAILY [facility] Last Admin: 05/29/17 08:40 Dose: 10 mg Magnesium Hydroxide (Milk Of Magnesia) 30 ml PO BID PRN PRN Reason: Constipation Midazolam HCl (Versed 1 Mg/Ml) Confirm Administered Dose 2 mg .ROUTE .STK-MED ONE Stop: 05/28/17 13:31 Midazolam HCl (Versed 1 Mg/Ml) Confirm Administered Dose 2 mg .ROUTE .STK-MED ONE Stop: 05/28/17 14:24 Morphine Sulfate (Morphine) 2 mg IVPUSH Q2H PRN PRN Reason: Breakthrough Pain Morphine Sulfate (Duramorph Pf) Confirm Administered Dose 10 mg .ROUTE .STK-MED ONE Stop: 05/28/17 13:31 Naloxone HCl (Narcan) 0.1 mg IVPUSH Q5M PRN PRN Reason: Oversedation Ondansetron HCl (Zofran) 4 mg IVPUSH Q6H PRN PRN Reason: Nausea/Vomiting Ondansetron HCl (Zofran) 4 mg IVPUSH ONETIME PRN PRN Reason: Nausea/Vomiting Ondansetron HCl (Zofran) Confirm Administered Dose 4 mg .ROUTE .STK-MED ONE Stop: 05/28/17 16:29 Oxycodone/Acetaminophen (Percocet 325-5 Mg) 1 - 2 tab PO Q4H PRN PRN Reason: Pain Last Admin: 05/29/17 12:56 Dose: 2 tab Forteo 20 Mcg (Injection) 0 each SUBCUT BEDTIME [facility] Propofol (Diprivan 20 Ml) Confirm Administered Dose 600 mg .ROUTE .STK-MED ONE Stop: 05/28/17 13:31 Propofol (Diprivan 20 Ml) Confirm Administered Dose 200 mg .ROUTE .STK-MED ONE Stop: 05/28/17 14:24 Propofol (Diprivan 20 Ml) Confirm Administered Dose 400 mg .ROUTE .STK-MED ONE Stop: 05/28/17 14:25 Propofol (Diprivan 20 Ml) Confirm Administered Dose 600 mg .ROUTE .STK-MED ONE Stop: 05/28/17 17:09 Senna (Senna) 8.6 mg PO BID PRN PRN Reason: Constipation Sodium Chloride (Saline Flush) 10 ml FLUSH ASDIRECTED PRN PRN Reason: Keep Vein Open Tranexamic Acid (Cyklokapron) Confirm Administered Dose 1,000 mg .ROUTE .STK- MED ONE Stop: 05/28/17 12:41 Last Admin: 05/28/17 16:27 Dose: 1,000 mg Vancomycin HCl (Vancomycin) Confirm Administered Dose 1 gm .ROUTE .STK-MED ONE Stop: 05/28/17 12:41 Last Admin: 05/28/17 16:26 Dose: 1 gm - Exam Wound/Incisions: Dressing Dry and Intact General: Alert, Cooperative, No Acute Distress Lungs: Normal Respiratory Effort Extremities: Other (Right thigh soft, nontender. NVS intact for BLE. Javi's negative.) - Problem List Review Problem List Initiated/Reviewed/Updated: Yes - Assessment Assessment (Free Text/Narrative):: POD#1 - right AMANDO - Plan Plan (Free Text/Narrative):: 1. Hgb 11.7 today. 2. 325mg ASA BID for VTE prophylaxis. 3. AMANDO precautions. Dr. Morgan evaluated the pt today.
--- NOTE | 2017-06-01 08:25 | PCM.DCSUM1 ---
Discharge Summary - Hospital Course Brief History: Jean-Paul is a 66 yo male who underwent right AMANDO with Dr. Morgan on 05-28-2017. The pt tolerated the procedure well and was admitted to the Medical -Surgical Unit. Medical management was provided by the Hospitalist service. The pt's Hospital course was uneventful. The pt's Hgb on POD#1 was 11.7. On POD#1, 325mg BID was initiated for VTE prophylaxis. SCDs and TEDs were also ordered. A Mepilex dressing was placed at the incision site at the time of surgery and remained clean and dry. The pt participated in P.T. and O.T. and progressed well. He followed the AMANDO precautions. The pt was allowed to WBAT. On POD#1, the pt was deemed appropriate to discharge to home with his . - Discharge Data Discharge Date: 05/29/17 Discharge Disposition: Home, Self-Care 01 Condition: Good - Patient Summary/Data Operative Procedure(s) Performed: right total hip arthroplasty Consults: Consultations 05/28/17 07:21 Consult to Physician [CONS] Routine OT Evaluation and Treatment [CONS] Routine 05/28/17 07:25 PT Evaluation and Treatment [CONS] Routine - Patient Instructions Diet: Usual Diet as Tolerated Activity: Apply Ice, As Tolerated, Elevate Extremity, Full Weight Bearing Activity, Other: Total hip precautions. Driving: Do Not Drive Showering/Bathing: May Shower Wound/Incision Care: Keep Operative Site/Wound Site Clean and Dry, Do NOT Change Dressing Notify Provider of: Fever, Increased Pain, Swelling and Redness, Drainage, Nausea and/or Vomiting Other/Special Instructions: Please get up and moving around every hour while awake. This helps to prevent blood clots. Please use your walker and have help as needed. Take a 325mg ASPIRIN TWICE DAILY. This also helps to prevent blood clots. The aspirin is being used for blood clot prevention and not for pain management, so please do not miss a dose of the medication. Do the exercises you were taught in the Hospital. Schedule for P.T. Follow the total hip precautions. Use the pain medication as needed. The medication may cause drowsiness and constipation. Contact your primary care provider for instructions if you are constipated. You may use a stool softener like docusate sodium or Colace 100mg twice daily and/or a laxative like Miralax daily for constipation. Use the ice machine often. Elevate the limb to decrease swelling. Keep the Mepilex dressing in place until follow-up at the Clinic. Notify the Clinic if the dressing is saturated. Wear the MICHAEL hose during the day and you may remove these at night. Eat a diet high in protein as this well help with healing. Schedule an appointment with your primary care provider for 'routine post-op care'. Call the Clinic with questions or concerns - [phone]. - Discharge Plan Home Medications: Home Meds Calcium Carbonate [Calcium] 1,200 mg PO DAILY 05/08/15 [History] Lisinopril/Hydrochlorothiazide [Lisinopril-Hctz 20-25 mg Tab] 0.5 tab PO DAILY 05/08/15 [History] Lutein/Minerals/Vit A,C & E [Ocuvite] 1 tab PO BID 06/02/16 [History] Diclofenac Sodium [Voltaren] 1 applic TOP ASDIRECTED PRN 05/25/17 [History] Forteo 20 mcg SQ DAILY 05/25/17 [History] Gabapentin [Neurontin] 1,200 mg PO TID 05/25/17 [History] Acetaminophen/oxyCODONE [Percocet 325-5 MG] 1 - 2 tab PO Q6H PRN #60 tablet [Rx] Acetaminophen/oxyCODONE [Percocet 325-5 MG] 1 - 2 tab PO Q6HR PRN #60 tablet [Rx] Aspirin [Ecotrin] 325 mg PO BID #70 tab.ec 05/29/17 [Rx] Cyclobenzaprine [Flexeril] 10 mg PO Q8HR PRN #40 tablet 05/29/17 [Rx] Patient Handouts: Total Hip Replacement, [id number], Hip Rehabilitation After Surgery, Aspirin, ASA oral tablets, Total Hip Replacement, Care After, [id number] Referrals: Emely Ly PA-C [Physician [employer]] - (Please see Emely Ly on Monday June 05, 2017 at 9:15 AM and on Monday June 12, 2017 at 9:15 AM.) Vane Steiner PA [Primary Care Provider] - - Patient Data Vitals - Most Recent: Last Vital Signs Temp 99.0 F 05/29/17 15:44 Pulse 92 05/29/17 15:44 Resp 18 05/29/17 15:44 BP 129/73 05/29/17 15:44 Pulse Ox 96 05/29/17 15:44 Weight - Most Recent: 205 lb Med Orders - Current: Current Medications Discontinued Medications Aspirin (Ecotrin) 325 mg PO BID [facility] Last Admin: 05/29/17 08:39 Dose: 325 mg Bisacodyl (Dulcolax) 5 mg PO DAILY PRN PRN Reason: Constipation Bupivacaine HCl (Marcaine 0.25%) Confirm Administered Dose 30 ml .ROUTE .STK- MED ONE Stop: 05/28/17 12:41 Last Admin: 05/28/17 16:25 Dose: 30 ml Calcium Carbonate/Glycine (Calcium Carbonate) 1,200 mg PO DAILY [facility] Last Admin: 05/29/17 08:40 Dose: 1,200 mg Cefazolin Sodium (Ancef) Confirm Administered Dose 2 gm .ROUTE .STK-MED ONE Stop: 05/28/17 12:41 Last Admin: 05/28/17 16:19 Dose: 2 gm Cefazolin Sodium (Ancef) Confirm Administered Dose 2 gm .ROUTE .STK-MED ONE Stop: 05/28/17 13:30 Morphine Sulfate 8 mg/Epinephrine HCl 0.3 mg/Cefuroxime Sodium 750 mg/Ketorolac Tromethamine 30 mg/Sodium Chloride 27.9 ml 0 mg .XX ONETIME ONE Stop: 05/28/17 15:01 Last Admin: 05/28/17 15:40 Dose: 788.3 mg Cyclobenzaprine HCl (Flexeril) 10 mg PO TID PRN PRN Reason: Spasms Diphenhydramine HCl (Benadryl) 25 mg IVPUSH Q4H PRN PRN Reason: Nausea Diphenhydramine HCl (Benadryl) 25 mg IVPUSH Q6H PRN PRN Reason: Pruritis Diphtheria/Tetanus/Acell Pertussis (Adacel) 0.5 ml IM .ONCE ONE Stop: 05/28/17 18:38 Last Admin: 05/29/17 14:48 Dose: 0.5 ml Docusate Sodium (Colace) 100 mg PO BID [facility] Last Admin: 05/29/17 08:39 Dose: 100 mg Ephedrine Sulfate (Ephedrine Sulfate) 5 mg IVPUSH ASDIRECTED PRN PRN Reason: Hypotension Famotidine (Pepcid) 20 mg PO Q12H [facility] Last Admin: 05/29/17 08:39 Dose: 20 mg Fentanyl (Sublimaze) Confirm Administered Dose 100 mcg .ROUTE .STK-MED ONE Stop: 05/28/17 13:31 Gabapentin (Neurontin) 1,200 mg PO TID [facility] Last Admin: 05/29/17 14:47 Dose: 1,200 mg Haloperidol Lactate (Haldol) 1 mg IVPUSH ONETIME ONE Stop: 05/28/17 15:42 Last Admin: 05/29/17 08:29 Dose: Not Given Hydrochlorothiazide (Hydrochlorothiazide) 12.5 mg PO DAILY [facility] Last Admin: 05/29/17 08:39 Dose: 12.5 mg Lactated Ringer's (Ringers, Lactated) 1,000 mls @ 125 mls/hr IV ASDIRECTED [facility] Last Admin: 05/28/17 13:28 Dose: 125 mls/hr Cefazolin Sodium/Dextrose 2 gm (/ Premix) 50 mls @ 100 mls/hr IV Q8H [facility] Stop: 05/29/17 13:59 Last Admin: 05/29/17 12:48 Dose: 100 mls/hr Influenza Virus Vaccine (Pharmacy To Dose - Influenza Vaccine) 1 each IM ONETIME ONE Stop: 05/28/17 18:38 Influenza Virus Vaccine (Flulaval Quad [id number]) 60 mcg IM .ONCE ONE Stop: 05/28/17 19:01 Last Admin: 05/29/17 14:49 Dose: 60 mcg Iodine (Iodine 2% Mild Tincture) Confirm Administered Dose 30 ml .ROUTE .STK- MED ONE Stop: 05/28/17 12:41 Last Admin: 05/28/17 16:15 Dose: 18 ml Ketamine HCl (Ketalar) Confirm Administered Dose 500 mg .ROUTE .STK-MED ONE Stop: 05/28/17 14:25 Ketorolac Tromethamine (Toradol) 15 mg IVPUSH Q6H [facility] Stop: 05/29/17 12:01 Last Admin: 05/29/17 12:48 Dose: 15 mg Ketorolac Tromethamine (Toradol) Confirm Administered Dose 30 mg .ROUTE .STK- MED ONE Stop: 05/28/17 16:29 Lidocaine/Sodium Bicarbonate (Buffered Lidocaine 1% In Ns 8.4%) 0.25 ml IV ONETIME PRN PRN Reason: Prior to IV Start Stop: 05/28/17 23:00 Last Admin: 05/28/17 13:27 Dose: 0.25 ml Lisinopril (Prinivil) 10 mg PO DAILY [facility] Last Admin: 05/29/17 08:40 Dose: 10 mg Magnesium Hydroxide (Milk Of Magnesia) 30 ml PO BID PRN PRN Reason: Constipation Midazolam HCl (Versed 1 Mg/Ml) Confirm Administered Dose 2 mg .ROUTE .STK-MED ONE Stop: 05/28/17 13:31 Midazolam HCl (Versed 1 Mg/Ml) Confirm Administered Dose 2 mg .ROUTE .STK-MED ONE Stop: 05/28/17 14:24 Morphine Sulfate (Morphine) 2 mg IVPUSH Q2H PRN PRN Reason: Breakthrough Pain Morphine Sulfate (Duramorph Pf) Confirm Administered Dose 10 mg .ROUTE .STK-MED ONE Stop: 05/28/17 13:31 Naloxone HCl (Narcan) 0.1 mg IVPUSH Q5M PRN PRN Reason: Oversedation Ondansetron HCl (Zofran) 4 mg IVPUSH Q6H PRN PRN Reason: Nausea/Vomiting Ondansetron HCl (Zofran) 4 mg IVPUSH ONETIME PRN PRN Reason: Nausea/Vomiting Ondansetron HCl (Zofran) Confirm Administered Dose 4 mg .ROUTE .STK-MED ONE Stop: 05/28/17 16:29 Oxycodone/Acetaminophen (Percocet 325-5 Mg) 1 - 2 tab PO Q4H PRN PRN Reason: Pain Last Admin: 05/29/17 12:56 Dose: 2 tab Forteo 20 Mcg (Injection) 0 each SUBCUT BEDTIME [facility] Propofol (Diprivan 20 Ml) Confirm Administered Dose 600 mg .ROUTE .STK-MED ONE Stop: 05/28/17 13:31 Propofol (Diprivan 20 Ml) Confirm Administered Dose 200 mg .ROUTE .STK-MED ONE Stop: 05/28/17 14:24 Propofol (Diprivan 20 Ml) Confirm Administered Dose 400 mg .ROUTE .STK-MED ONE Stop: 05/28/17 14:25 Propofol (Diprivan 20 Ml) Confirm Administered Dose 600 mg .ROUTE .STK-MED ONE Stop: 05/28/17 17:09 Senna (Senna) 8.6 mg PO BID PRN PRN Reason: Constipation Sodium Chloride (Saline Flush) 10 ml FLUSH ASDIRECTED PRN PRN Reason: Keep Vein Open Tranexamic Acid (Cyklokapron) Confirm Administered Dose 1,000 mg .ROUTE .STK- MED ONE Stop: 05/28/17 12:41 Last Admin: 05/28/17 16:27 Dose: 1,000 mg Vancomycin HCl (Vancomycin) Confirm Administered Dose 1 gm .ROUTE .STK-MED ONE Stop: 05/28/17 12:41 Last Admin: 05/28/17 16:26 Dose: 1 gm *Q Meaningful Use (DIS) - VTE *Q VTE Criteria *Q: - Stroke *Q Stroke Criteria *Q: - AMI *Q AMI Criteria *Q:
--- NOTE | 2017-06-01 09:40 | OR ---
DATE OF OPERATION: 05/28/2017 SURGEON: Denton Morgan MD OPERATION PERFORMED: Right total hip arthroplasty. PREOPERATIVE DIAGNOSIS: Right hip osteoarthrosis. POSTOPERATIVE DIAGNOSIS: Right hip osteoarthrosis. ANESTHESIA: Local MAC with spinal. PRIMARY SURGEON: Denton Morgan MD. ANESTHESIA PROVIDER: Katya Perez CRNA ASSISTANTS: Emely Ly PA-C and Doris Medrano LPN. ESTIMATED BLOOD LOSS: 600 mL. COMPLICATIONS: None. CONDITION: Stable. IMPLANTS: 1. Sylvia size 60 Tritanium solid acetabular cup. 2. [place] 46-mm MDM liner. 3. A 28 52 mm MDM polyethylene. 4. A 28-mm +4 ceramic head. 5. Size 8 Accolade II stem. DESCRIPTION OF PROCEDURE: The patient was identified in the preoperative holding area, and the proper site was marked and identified by surgeon. The patient was taken back to the operating theater, where after adequate anesthesia, the patient was placed in the left lateral decubitus position. All bony prominences were well padded. The patient had axillary roll placed, and pegs were placed and well padded. The patient's gluteal fold was parallel to the floor. At this time, the right hip was then sterilely prepped and draped in the usual sterile fashion. OR time-out was performed. The patient received 2 g of IV Ancef. A standard posterior incision was made, centered over the greater trochanter. This was taken down to the IT band and gluteal fascia, which was incised along the incisional length. A Charnley retractor was then placed. The short external rotators were then identified and taken down with the short external rotators as well as a capsulotomy was done from the piriformis all the way to the level of the lesser trochanter. The hip was then dislocated. A neck cut guide was then placed and neck cut was completed. Attention was turned to the acetabulum. Anterior and posterior acetabular retractors were placed. The pulvinar was removed along with the anterior posterior labrum. Starting with a 50 reamer, I was able to ream up to a 60 for a 60-mm cup. The trial had adequate fixation. At this time, a solid Tritanium 60-mm cup was impacted into place in roughly 45 degrees of abduction and 20 degrees of anteversion. The MDM liner was then impacted into place. Attention was turned to the femur. A box chisel was used out laterally. Starter awl was placed down the canal. Starting with the 0 broach, I was able to broach up to a size 8, which was found to be rotationally and vertically stable. At this time, a 127-degree neck angle trial was placed along with the 28-mm head and a 46-mm MDM trial. A standard +0 was first trialed. It was found to be a small amount short. At this time, a +4 was trialed, and it was found to have adequate christianity of leg lengths. At this time, hip was brought through range of motion and was found to be stable throughout range of motion with no signs of dislocation. At this time, the hip was dislocated with the use of a bone hook. Size 8 Accolade II stem was then impacted into place. The MDM components were then constructed on the back table, and then were impacted and placed onto the neck of the Accolade II stem. The hip was then relocated and was found to be stable. Implants were in good position. One liter of dilute Betadine solution was then irrigated through the hip along 3 L of pulse lavage irrigation with Ancef. A periarticular injection was then completed, and vancomycin powder was placed. WOUND CLOSURE: A #5 Ethibond suture was used for closure of the deep short external rotators as well as capsule. A #2 barbed suture was used for closure of the IT band and gluteal fascia, 2-0 Vicryl was used subcutaneously, and Prineo was used for the skin. The patient had a sterile soft dressing applied. POSTOPERATIVE DISPOSITION: He was sent to the PACU in stable condition. MMODAL /[id number]
== END 2017-05-29 17:00 | disposition home or self-care (01) | DRG 470 ==
LOC: JD.MS 12:51
PROVIDERS: ADMIT Orthopaedic Surgery; ATTEND Orthopaedic Surgery
PROC: 0SR9029 Replacement of Right Hip Joint with Metal on Polyethylene Synthetic Substitute, Cemented, Open Approach (ICD-10-PCS; principal; 2017-05-28)
DX: M16.11 Unilateral primary osteoarthritis, right hip (principal); I10 Essential (primary) hypertension; Z79.899 Other long term (current) drug therapy; G47.33 Obstructive sleep apnea (adult) (pediatric); Z96.642 Presence of left artificial hip joint; K21.9 Gastro-esophageal reflux disease without esophagitis; Z85.46 Personal history of malignant neoplasm of prostate; M81.0 Age-related osteoporosis without current pathological fracture; Z96.651 Presence of right artificial knee joint; Z23 Encounter for immunization
CPT/HCPCS: 01214; 36415; 73501-26-RT; 73501-RT; 80053; 85027; 86850; 86900; 86901; 87641; 90686; 90715; 94762; 97116-GP; 97162-GP; 97165-GO; 97530-GP; 97535-GO; A9270-GY; C1776; G0008; J0171; J0690; J0697; J1885; J2250; J2270; J2405; J2704; J3010; J3370; J3490; J7120

== ENCOUNTER 2022-12-13 09:24 | Day surgery (SDC) | payer MEDICARE, OTHER ==
[2022-12-13] MEDS ORDERED: Lidocaine 1%/Sod Bicarbonate in NS 8.4% 1 ML Syringe IDERM PRN (09:30)
[2022-12-13] MEDS ORDERED: Sodium Chloride 0.9% 10 ML Syringe FLUSH SCH (09:30)
[2022-12-13] MEDS ORDERED: Sodium Chloride 0.9% 10 ML Syringe FLUSH PRN (09:30)
[2022-12-13] MEDS ORDERED: Lactated Ringers 1,000 ML IV SCH (09:30)
[2022-12-13] MEDS ORDERED: Ondansetron 4 MG/2 ML SDV IVPUSH PRN ×2 (10:04→15:23)
[2022-12-13] MEDS ORDERED: Lidocaine 1% 2 ML ONE (11:30)
[2022-12-13] MEDS ORDERED: fentaNYL 100 MCG/2 ML SDV ONE (11:30)
[2022-12-13] MEDS ORDERED: Propofol 200 MG/20 ML SDV ONE (11:30)
[2022-12-13] MEDS ORDERED: Lidocaine 1% PF 2 ML SDV ONE (11:30)
[2022-12-13] MEDS ORDERED: Rocuronium 50 MG/5 ML Vial ONE ×2 (11:30→12:37)
[2022-12-13] MEDS ORDERED: Dexamethasone 4 MG/ML 5 ML MDV ONE (11:39)
[2022-12-13] MEDS ORDERED: Ondansetron 4 MG/2 ML SDV ONE (11:39)
[2022-12-13] MEDS ORDERED: ceFAZolin 2 GM Vial ONE (11:45)
[2022-12-13] MEDS ORDERED: ePHEDrine 50 MG/ML SDV ONE (11:47)
[2022-12-13] MEDS: Bupivacaine 0.5%/EPINEPHrine 1:200,000 50 ML MDV ONE ×2 (11:53→12:12)
[2022-12-13] MEDS: Lidocaine 1% with EPINEPHrine 1:100,000 20 ML MDV ONE ×2 (11:53→12:12)
[2022-12-13] MEDS ORDERED: HYDROmorphone 0.5 MG/0.5 ML Syringe ONE ×3 (12:01→12:45)
[2022-12-13] MEDS ORDERED: Lactated Ringers 1,000 ML ONE (12:11)
[2022-12-13] MEDS: fentaNYL 100 MCG/2 ML SDV IVPUSH PRN ×2 (14:58→15:11)
[2022-12-13] MEDS: HYDROmorphone 0.5 MG/0.5 ML Syringe IVPUSH PRN ×2 (15:01→15:16)
[2022-12-13] MEDS ORDERED: LORazepam 2 MG/ML SDV IVPUSH SCH (15:18)
[2022-12-13] MEDS ORDERED: Gabapentin 600 MG Tab PO SCH (15:20)
[2022-12-13] MEDS ORDERED: Acetaminophen 325 MG Tab PO SCH (15:22)
[2022-12-13] MEDS ORDERED: Acetaminophen/oxyCODONE 325-5 MG Tab PO SCH (15:29)
[2022-12-13 18:00] VITALS: BP 135/77; PULSE 77
== END 2022-12-13 17:50 | disposition home or self-care (01) ==
LOC: JD.SDS 09:24
PROVIDERS: ATTEND Surgery
DX: K43.2 Incisional hernia without obstruction or gangrene (principal); K42.9 Umbilical hernia without obstruction or gangrene; I10 Essential (primary) hypertension; M19.90 Unspecified osteoarthritis, unspecified site; M81.0 Age-related osteoporosis without current pathological fracture; K21.9 Gastro-esophageal reflux disease without esophagitis; G47.33 Obstructive sleep apnea (adult) (pediatric); Z79.82 Long term (current) use of aspirin; Z98.890 Other specified postprocedural states; Z79.899 Other long term (current) drug therapy; Z88.8 Allergy status to other drugs, medicaments and biological substances; Z87.891 Personal history of nicotine dependence
CPT/HCPCS: 49591; 49623; A9270; C1765; C1781; J0690; J1100; J1170; J2060; J2405; J2704; J3010; J3490; J7120

== ENCOUNTER 2022-12-15 16:20 | Emergency (ER) | payer MEDICARE, OTHER ==
[2022-12-15 16:33] VITALS: BP 146/88; PULSE 78
[2022-12-15] MEDS ORDERED: Ondansetron 4 MG/2 ML SDV IVPUSH ONE (17:09)
[2022-12-15] MEDS ORDERED: HYDROmorphone 0.5 MG/0.5 ML Syringe IVPUSH ONE (17:09)
[2022-12-15] MEDS ORDERED: Sodium Chloride 0.9% 1,000 ML IV STA (17:09)
[2022-12-15] MEDS ORDERED: Sodium Chloride 0.9% 10 ML Syringe FLUSH PRN (17:09)
[2022-12-15 17:47] LABS: BASOPHILS ABSOLUTE AUTO 0.01 K/mm3 (0.01-0.08); BASOPHILS PERCENT AUTO 0.1 % (0.1-1.2); EOSINOPHILS ABSOLUTE AUTO 0.06 K/mm3 (0.04-0.54); EOSINOPHILS PERCENT AUTO 0.6 (0.8-7.0); HEMATOCRIT 49.5 % (40.1-51.0); HEMOGLOBIN 16.6 gm/dl (13.7-17.5); IMMATURE GRAN ABSOLUTE AUTO 0.02 K/mm3 (0.00-0.10); IMMATURE GRAN PERCENT AUTO 0.2 % (<=1.0); LYMPHOCYTES ABSOLUTE AUTO 0.95 K/mm3 (1.32-3.57); LYMPHOCYTES PERCENT AUTO 9.5 % (21.8-53.1); MEAN CORPUSCULAR HEMOGLOBIN 30.4 pg (25.7-32.2); MEAN CORPUSCULAR HGB CONC 33.5 g/dl (32.2-35.5); MEAN CORPUSCULAR VOLUME 90.7 fl (79.0-92.2); MEAN PLATELET VOLUME 9.4 fl (9.4-12.3); MONOCYTES ABSOLUTE AUTO 1.08 K/mm3 (0.30-0.82); MONOCYTES PERCENT AUTO 10.8 % (5.3-12.2); NEUTROPHILS ABSOLUTE AUTO 7.89 K/mm3 (1.78-5.38); NEUTROPHILS PERCENT AUTO 78.8 % (34.0-67.9); PLATELET COUNT,PLT 207 K/mm3 (163-337); RED BLOOD CELL COUNT 5.46 M/mm3 (4.63-6.08); WHITE BLOOD CELL COUNT,WBC 10.01 K/mm3 (4.23-9.07)
[2022-12-15 18:08] LABS: ALBUMIN 3.7 g/dl (3.4-5.0); ANION GAP 13.7 (5-15); BILIRUBIN TOTAL 1.1 mg/dL (0.2-1.0); C-REACTIVE PROTEIN 5.3 mg/dL (<1.0); CALCIUM 9.1 mg/dL (8.5-10.1); EST CRCL DRUG DOSING (CG) 72.21 mL/min; POTASSIUM,K 3.7 mEq/L (3.5-5.1); PROTEIN TOTAL,TP 7.5 g/dl (6.4-8.2)
== END 2022-12-15 20:30 | disposition home or self-care (01) ==
LOC: JD.ED 16:20
DX: K59.03 Drug induced constipation (principal); T50.905A Adverse effect of unspecified drugs, medicaments and biological substances, initial encounter; I10 Essential (primary) hypertension; K21.9 Gastro-esophageal reflux disease without esophagitis; Z79.82 Long term (current) use of aspirin; Z79.899 Other long term (current) drug therapy
CPT/HCPCS: 36415; 74019; 80053; 85025; 86140; 96361; 96374; 96375; 99284; J1170; J2405; J3490; J7030; 93010

== ENCOUNTER → 2022-12-27 | Day surgery (SDC) | payer MEDICARE, OTHER ==
[~2022-12-27] MED LIST changes: -Bisacodyl 5 MG Tab PO PRN; +Bupivacaine 0.25% 10 ML SDV ONE; -Cyclobenzaprine 10 MG Tab PO PRN; +Lidocaine 1% 10 ML MDV ONE; +Lidocaine 1% 2 ML ONE; +Lidocaine 1%/Sod Bicarbonate in NS 8.4% 1 ML Syringe IDERM PRN; -Lidocaine 1%/Sod Bicarbonate in NS 8.4% 1 ML Syringe IV PRN; -Magnesium Hydroxide 400 MG/5 ML Susp 30 ML Cup PO PRN; +Midazolam 1 MG/ML 2 ML SDV ONE; -Morphine 2 MG/ML Syringe IVPUSH PRN; -Naloxone 0.4 MG/ML SDV IVPUSH PRN; -Ondansetron 4 MG/2 ML SDV IVPUSH PRN; +Propofol 200 MG/20 ML SDV ONE; -Sennosides 8.6 MG Tab PO PRN; +Sodium Chloride 0.9% 10 ML Syringe FLUSH SCH; +ceFAZolin 2 GM Vial ONE; -diphenhydrAMINE 50 MG/ML SDV IVPUSH PRN; +fentaNYL 100 MCG/2 ML SDV ONE
[2022-12-27 08:10] VITALS: BP 120/78; PULSE 59
== END | disposition home or self-care (01) ==
LOC: JD.SDS 06:00
PROVIDERS: ATTEND Orthopaedic Surgery
DX: G56.02 Carpal tunnel syndrome, left upper limb (principal); I10 Essential (primary) hypertension; M19.90 Unspecified osteoarthritis, unspecified site; G47.33 Obstructive sleep apnea (adult) (pediatric); M81.0 Age-related osteoporosis without current pathological fracture; J20.9 Acute bronchitis, unspecified; K21.9 Gastro-esophageal reflux disease without esophagitis; Z79.82 Long term (current) use of aspirin; Z79.899 Other long term (current) drug therapy; Z87.891 Personal history of nicotine dependence
CPT/HCPCS: 64721; J0690; J2250; J2704; J3010; J3490; J7120; 01810; 99100